=== PATIENT | female | born 1995 | race Caucasian/White ===

== ENCOUNTER 2024-01-03 18:22 | Emergency (ER) | payer MEDICAID ==
[~2024-01-03] VITALS: Ht 175.3 cm; Wt 78.0 kg
[2024-01-03 18:31] VITALS: O2SAT 98
[2024-01-03] MEDS: SODIUM CHLORIDE 0.9% 1,000 ML IV ONE (18:45)
[2024-01-03 18:56] LABS: HEMATOCRIT. 39.5 % (36.0-48.0); HEMOGLOBIN. 13.1 g/dL (12.0-16.0); MEAN CORPUSCULAR HGB CONC 33.2 g/dL (31.0-37.0); MEAN CORPUSCULAR VOLUME 84.5 fL (81.0-99.0); MEAN PLATELET VOLUME 8.5 fl (7.4-10.4); PLATELET 261 x1000/uL (130-400); RED BLOOD CELL COUNT 4.68 mill/uL (4.2-5.4); RED CELL DISTRIBUTION WIDTH 15.4 % (11.6-14.6); WHITE BLOOD COUNT 8.8 x1000/uL (4.5-11.0)
[2024-01-03 19:00] LABS: CHLORIDE 109 mEq/L (98-107); POTASSIUM 3.6 mEq/L (3.5-5.1); SODIUM 140 mEq/L (136-145)
[2024-01-03 19:01] LABS: CALCIUM 8.9 mg/dL (8.7-10.4); CARBON DIOXIDE 23 mEq/L (21-32)
[2024-01-03 19:02] LABS: DIFFERENTIAL COMMENT 1
[2024-01-03 19:06] LABS: CREATININE 0.9 mg/dL (0.6-1.0); GLUCOSE 101 mg/dL (70-105); HCG SCREEN NEGATIVE; UREA NITROGEN BLOOD 9 mg/dL (9-23)
[2024-01-03 19:27] LABS: PLATELET ESTIMATE NORMAL
[2024-01-03 19:28] LABS: ANISOCYTOSIS 1+
[2024-01-03] MEDS: ONDANSETRON HCL 4MG/2ML INJ IV STA (20:40)
[2024-01-03] MEDS: DIPHENHYDRAMINE 50MG/ML VIAL IV ONE (20:45)
[2024-01-03] MEDS: PROCHLORPERAZINE 10MG/2ML VIAL IV STA (20:45)
[2024-01-03] MEDS: ACETAMINOPHEN 1000MG/100ML 100 ML IV ONE (21:07)
[2024-01-03 21:22] LABS: BG BASE EXCESS -2.6 mmol/L (-2.0-2.0); BG CARBOXYHEMOGLOBIN 0.3 % (0.5-1.5); BG DEOXYHEMOGLOBIN 3.3 % (0.0-5.0); BG FRACTION INSPIRED OXYGEN 21; BG HCO3 ACT 20.8 mmol/L (22.0-26.0); BG METHEMOGLOBIN 0.3 % (0.0-1.5); BG OXYGEN SATURATION 96.7 % (92.0-98.5); BG OXYHEMOGLOBIN 96.1 % (94.0-97.0); BG PCO2 31.8 mmHg (35.0-45.0); BG PH 7.433 (7.350-7.450); BG PO2 86.3 mmHg (75.0-100.0); BG SAMPLE SITE RIGHT RADIAL; BG TOTAL HEMOGLOBIN 13.3 g/dL (12.0-18.0); BG VENT MODE ROOM AIR
[2024-01-03 22:12] VITALS: BP 133/74; PULSE 79; RESP 15; TEMP 98.3
[2024-01-03] MEDS ORDERED: ASPI-1154 PO (22:15)
== END 2024-01-03 22:37 | disposition home or self-care (01) ==
LOC: ER 18:22
DX: R51.9 Headache, unspecified (principal); I49.9 Cardiac arrhythmia, unspecified
CPT/HCPCS: 99285; 96365; 96375; 70450; 96361; 80048; 84703; 85025; 36415; 82805; 82375; 93005; 36600; J1200; J2405; J0780; J7030; J0131